=== PATIENT | female | born 1970 ===

== ENCOUNTER → 2017-09-18 13:31 | Outpatient (CLI) | payer OTHER | END | disposition home or self-care (01) | LOC: RAD 13:31 | DX: K80.20 Calculus of gallbladder without cholecystitis without obstruction (principal) ==

== ENCOUNTER → 2017-09-18 13:36 | Outpatient (CLI) | payer OTHER | END | disposition home or self-care (01) | LOC: EKG 13:36 | DX: K80.20 Calculus of gallbladder without cholecystitis without obstruction (principal) ==

== ENCOUNTER 2017-10-15 06:32 | Day surgery (SDC) | payer OTHER ==
[2017-10-15] MEDS ORDERED: ULTRAM50 MG PO (08:54)
[2017-10-15] MEDS ORDERED: POLY119PG PO (08:54)
[2017-10-15] MEDS ORDERED: SURFAK240 M1 PO (08:57)
== END 2017-10-15 11:30 | disposition home or self-care (01) ==
LOC: CIR.AMB 06:32
DX: K80.10 Calculus of gallbladder with chronic cholecystitis without obstruction (principal)

== ENCOUNTER 2018-08-07 07:00 | Day surgery (SDC) | payer OTHER ==
[~2018-08-07] VITALS: Ht 154.9 cm; Wt 62.6 kg
[~2018-08-07 07:00] MED LIST: POLY119PG PO; SURFAK240 M1 PO; ULTRAM50 MG PO
== END 2018-08-07 13:00 | disposition home or self-care (01) ==
LOC: CIR.AMB 07:00 → SURH 15:39 → O/R 15:39 → SURH 17:55 → O/R 17:55
PROVIDERS: Plastic Surgery
PROC: 0JB80ZZ Excision of Abdomen Subcutaneous Tissue and Fascia, Open Approach (ICD-10-PCS; principal; 2018-08-07 07:00)
PROC: 0J083ZZ Alteration of Abdomen Subcutaneous Tissue and Fascia, Percutaneous Approach (ICD-10-PCS; 2018-08-07 07:00)
PROC: 0HBV0ZZ Excision of Bilateral Breast, Open Approach (ICD-10-PCS; 2018-08-07 07:00)
PROC: 0HRV0JZ Replacement of Bilateral Breast with Synthetic Substitute, Open Approach (ICD-10-PCS; 2018-08-07 07:00)
DX: E65 Localized adiposity (principal); M62.08 Separation of muscle (nontraumatic), other site; R63.4 Abnormal weight loss; N62 Hypertrophy of breast; Z98.84 Bariatric surgery status

== ENCOUNTER → 2018-12-10 12:24 | Outpatient (CLI) | payer OTHER ==
[~2018-12-10 12:24] MED LIST changes: +FOLTX TABLET1 EACH PO; +MULTI-VITAMIN1 EACH PO; +NEURONTIN800 MG PO; +PERCOCET 5-3251 EACH PO; +PROTEIN PO
== END | disposition home or self-care (01) ==
LOC: LAB 12:24
DX: K40.90 Unilateral inguinal hernia, without obstruction or gangrene, not specified as recurrent (principal)

== ENCOUNTER 2018-12-16 05:44 | Day surgery (SDC) | payer OTHER ==
[~2018-12-16 05:44] MED LIST changes: -NEURONTIN800 MG PO; -PERCOCET 5-3251 EACH PO
[2018-12-16] MEDS ORDERED: PERCOCET 5-3251 EACH PO (09:27)
[2018-12-16] MEDS ORDERED: NEURONTIN800 MG PO (09:27)
[2018-12-16] MEDS ORDERED: POLY119PG PO (09:27)
== END 2018-12-16 11:55 | disposition home or self-care (01) ==
LOC: CIR.AMB 05:44
DX: K40.90 Unilateral inguinal hernia, without obstruction or gangrene, not specified as recurrent (principal); K42.9 Umbilical hernia without obstruction or gangrene; D17.1 Benign lipomatous neoplasm of skin and subcutaneous tissue of trunk

== ENCOUNTER 2018-12-24 10:21 | Outpatient (CLI) | payer OTHER ==
[~2018-12-24 10:21] MED LIST changes: +NEURONTIN800 MG PO; +PERCOCET 5-3251 EACH PO
== END 2018-12-24 10:24 | disposition home or self-care (01) ==
LOC: NUCLEAR 10:21
DX: I20.8 Other forms of angina pectoris (principal)

== ENCOUNTER 2020-02-24 07:59 | Outpatient (CLI) | payer OTHER | END 2020-02-24 08:22 | disposition home or self-care (01) | LOC: NUCLEAR 07:59 | PROVIDERS: ATTEND Internal Medicine | DX: M15.0 Primary generalized (osteo)arthritis (principal); M13.0 Polyarthritis, unspecified | CPT/HCPCS: 78306; A9503 ==

== ENCOUNTER 2021-07-03 09:00 | Outpatient (CLI) | payer OTHER | END 2021-07-03 09:15 | disposition home or self-care (01) | LOC: PPH VACUNA 09:00 | PROVIDERS: ATTEND Emergency Medicine Pediatric Emergency Medicine | DX: Z23 Encounter for immunization (principal) ==